=== PATIENT | female | born 1965 | race Caucasian/White ===

== ENCOUNTER 2020-02-15 12:37 | Outpatient (CLI) | payer OTHER, SELFPAY ==
[2020-02-15 13:05] LABS: Basophils Percent Auto 0.7 % (0.2-1.2); Eosinophils Absolute Auto 0.1 K/mm3 (0-0.3); Eosinophils Percent Auto 2.4 % (0-4.4); Hematocrit 43.7 % (37.0-47.0); Hemoglobin 14.4 g/dL (12.0-15.0); Immature Granulocyte Absolute 0.03 K/mm3 (0.00-0.031); Immature Granulocyte Percent A 0.5 % (0-0.5); Lymphocytes Absolute Auto 1.33 K/mm3 (0.9-3.2); Lymphocytes Percent Auto 22.5 % (18.3-44.2); Mean Corpuscular Hemoglobin 28.1 pg (26-34); Mean Corpuscular Volume 85.2 fl (80-100); Mean Platelet Volume 11.6 fl (7.4-10.4); Monocytes Absolute Auto 0.6 K/mm3 (0.1-0.6); Monocytes Percent Auto 9.3 % (2.6-8.5); Neutrophils Absolute Auto 3.8 K/mm3 (1.3-6.7); Neutrophils Percent Auto 64.6 % (45.5-73.1); Platelet Count Result 127 k/mm3 (150-375); Red Blood Count 5.13 M/mm3 (4.2-5.4); Red Cell Distribution Width 12.8 % (11.5-14.5); White Blood Count 5.9 K/mm3 (4.5-10.0)
[2020-02-15 15:32] LABS: Alanine Aminotransferase 29 U/L (4-35); Albumin Level 4.5 g/dL (3.5-5.1); Alkaline Phosphatase 75 U/L (38-126); Anion Gap 10 mmol/L (8-16); Aspartate Amino Transferase 31 U/L (14-36); Bilirubin,Total 0.6 mg/dL (0.2-1.3); Blood Urea Nitrogen 15 mg/dL (7-17); Carbon Dioxide 30 mmol/L (22-30); Chloride 101 mmol/L (98-107); Estimated Glomerular Filt Rate > 60; Glucose 87 mg/dL (65-105); Potassium 4.3 mmol/L (3.4-5.0); Sodium 141 mmol/L (137-145)
[2020-02-15 15:40] LABS: Iron 107 ug/dL (37-170); Percent Iron Saturation 30 % (20-50)
[2020-02-15 16:29] LABS: Vitamin B12 > 1000.0 pg/mL (239-931)
== END 2020-02-15 12:38 | disposition home or self-care (01) ==
LOC: ANHLAB 12:39
PROVIDERS: PCP Internal Medicine; Visit Provider Internal Medicine Hematology & Oncology
DX: D69.59 Other secondary thrombocytopenia (principal)
CPT/HCPCS: 36415; 80053; 82607; 82728; 83540; 83550; 85025; 86038

== ENCOUNTER 2020-03-07 08:19 | Outpatient (CLI) | payer OTHER, SELFPAY ==
--- NOTE | ~2020-03-07 | US_ITS ---
US abdomen complete DATE: 03/07/2020 09:55 INDICATION: Thrombocytopenia TECHNIQUE: Real-time imaging of abdomen, Doppler analysis COMPARISON: None FINDINGS: No hepatic or pancreatic, splenic or renal space-occupying mass lesion is evident. Normal h epatopedal portal venous flow direction. No gallstones or gallbladder wall thickening or abnormal pericholecystic fluid collection. The common bile duct measures 3.1 mm, normal. No hydronephrosis of either kidney. The kidneys each measure appr oximately 11 cm length. Normal caliber of the abdominal aorta. The inferior vena cava is unremarkable. IMPRESSION: Negative examination Reviewed, dictated and finalized at [facility]. Reviewed, dictated and finalized at [facility]. IMPRESSION: Negative examination
== END 2020-03-07 08:20 | disposition home or self-care (01) ==
PROVIDERS: PCP Internal Medicine; Visit Provider Internal Medicine Hematology & Oncology
DX: D69.59 Other secondary thrombocytopenia (principal)
CPT/HCPCS: 76700

== ENCOUNTER 2022-02-19 12:28 | Outpatient (CLI) | payer OTHER, SELFPAY ==
--- NOTE | ~2022-02-19 | MMUS_ITS ---
EXAMINATION: MM diagnostic grant BI w jaylene, US breast LT complete HISTORY: Palpable left breast lump. Painful. TECHNIQUE: Additional 3-D tomosynthesis images of the breasts were performed and synthetic 2-D images were generated. CAD analysis was submitted and interpreted. High resolution complete left breast ult rasound was performed. COMPARISON: 02/19/2022 BREAST PARENCHYMAL COMPOSITION: The breasts are heterogeneously dense, which may obscure small masses FINDINGS: MAMMOGRAPHIC FINDINGS: There are no suspicious masses, calcifications or architectural distortion in the right breast to sug gest malignancy. In the left breast in the area of palpable concern there is an irregular shaped mass posteriorly abutting the pectoralis muscle. This mass measures approximately 4 cm greatest dimension and is located in the lower inner quadrant of the left breast. There is a second spiculated mass in the lower central aspect of the left breast with associated architectural distortion. There is focal asymmetry in the upper aspect of the right breast without corresponding abnormality on CC view. ULTRASOUND: Complete left breast US of all 4 quadrants of the breasts and retroareolar region was reviewed. And 9 :00, 20 cm from the nipple, there is an irregular shaped hypoechoic mass measuring 5.2 x 2.8 x 4.2 cm corresponding to the palpable abnormality. There is posterior shadowing. No significant internal vas cularity. At 12:00 there is a heterogeneous mass with dense posterior shadowing and ill-defined abigail ns measuring approximately 3.3 cm transverse dimension on longitudinal image. At 4:00, 13 cm from the nipple there is an irregular shaped heterogeneous mass measuring 2.3 cm greatest dimension. There is mild internal vascularity. Mixed posterior attenuation. IMPRESSION: 1. Multiple abnormal left breast masses located at 9:00, 20 cm from the nipple, 12:00, 7 cm from the nipple and 4:00, 13 cm from the nipple. 2. Ultrasound-guided left breast biopsies recommended. BI-RADS category 5: Highly suspicious abnormality. Reviewed, dictated and finalized at location [facility]. IMPRESSION: 1. Multiple abnormal left breast masses located at 9:00, 20 cm from the nipple, 12:00, 7 cm from the nipple and 4:00, 13 cm from the nipple. 2. Ultrasound-guided left breast biopsies recommended. BI-RADS category 5: Highly suspicious abnormality.
== END 2022-02-19 12:29 | disposition home or self-care (01) ==
PROVIDERS: PCP Internal Medicine; Visit Provider Student in an Organized Health Care Education/Training Program
DX: N63.20 Unspecified lump in the left breast, unspecified quadrant (principal); R92.8 Other abnormal and inconclusive findings on diagnostic imaging of breast
CPT/HCPCS: 76641; 77062; 77066; G0279

== ENCOUNTER 2022-03-03 10:08 | Outpatient (CLI) | payer OTHER, SELFPAY ==
--- NOTE | ~2022-03-03 | MMUS_ITS ---
EXAMINATION: US breast biopsy LT w image, MM post biopsy invasive LT, US breast bx add lesion LT DATE: 03/03/2022 12:20 (accession [id number]), 03/03/2022 12:40 (accession [id number]), 02/07 12:21 (accession [id number]) INDICATION: Patient presents for biopsy of indeterminate masses at the 12:00, 4:00, and 9:00 location s in the left breast. TECHNIQUE AND FINDINGS: One preliminary scanning, ultrasound targets for biopsy are identified at the 9:00 and 4:00 locations . A distinct targeted for ultrasound-guided biopsy is not identified at the 12:00 location. The risks and potential benefits of the procedure were discussed with the patient including bleeding and infec tion. A time out was performed. The skin of the left breast was prepared and draped in usual sterile fashion. 1% lidocaine was used for superficial anesthesia. 1% lidocaine with epinephrine was used for deep anesthesia. A vacuum-assisted biopsy needle was advanced through to the outer edge of the mass at the 4:00 locati on from a lateral approach utilizing sonographic guidance. A total of four tissue core samples were o btained through the lesion. A tissue marker clip was then placed at the biopsy site. Attention was th en directed to the mass at the 9:00 location. Six tissue core samples were obtained and a tissue vinayak er was then placed at the biopsy site. Hemostasis was achieved. A sterile bandage was applied. The patient tolerated procedure well and there was no evidence of immediate complication. The patient was given verbal instructions to return to the Emergency Department in the event of severe breast pa in or rapid breast enlargement. A two view left breast mammogram was obtained to document tissue vinayak er clip placement. IMPRESSION: 1. Successful ultrasound-guided vacuum-assisted biopsy of left breast masses with tissue marker place ment. Tomosynthesis guided biopsy should be considered for the mammographically detected abnormality at the 12:00 location. Reviewed, dictated and finalized at location [facility]. IMPRESSION: 1. Successful ultrasound-guided vacuum-assisted biopsy of left breast masses wi th tissue marker placement. Tomosynthesis guided biopsy should be considered fo r the mammographically detected abnormality at the 12:00 location. IMPRESSION: 1. Successful ultrasound-guided vacuum-assisted biopsy of left breast masses wi th tissue marker placement. Tomosynthesis guided biopsy should be considered fo r the mammographically detected abnormality at the 12:00 location.
== END 2022-03-03 10:09 | disposition home or self-care (01) ==
PROVIDERS: PCP Internal Medicine; Visit Provider Student in an Organized Health Care Education/Training Program
DX: D05.12 Intraductal carcinoma in situ of left breast (principal)
CPT/HCPCS: 19083; 19084; 88305; 88342; 88360; 88365; A4648